=== PATIENT | male | born 1970 | race Caucasian/White ===

== ENCOUNTER 2016-10-15 17:45 | Emergency (ER) | payer BC, OTHER ==
--- NOTE | 2016-10-15 18:17 | EDM.PDOC ---
ED HPI Trauma - General Stated Complaint: INJURED FINGER Time Seen by Provider: 10/15/16 18:01 Source: Reports: Patient History Limitations: Reports: No limitations - History of Present Illness INITIAL COMMENTS - FREE TEXT/NARRATIVE: Patient presents a couple hours after sticking his left ring finger in the bottom of a leaf blower and getting pinched/crushed between the plastic fan blade and fan housing. It was just the distal finger and not involving the DIP joint. No other injuries. Allergies/ADRs: Allergies promethazine [From Phenergan] Allergy (Verified 10/15/16 18:24) Other Home Medications: Ambulatory Orders . [No Known Home Meds] 10/15/16 [Confirmed 10/15/16] Review of Systems - Review of Systems Review Of Systems: ROS reveals no pertinent complaints other than HPI. Trauma Exam - Physical Exam Exam: See Below Exam Limited By: No limitations General Appearance: Reports: alert, WD/WN, no apparent distress Head: Reports: atraumatic, normocephalic Eyes: bilateral eye: EOMI, normal inspection, PERRL Ears: Reports: normal external exam, hearing grossly normal Nose: Reports: normal inspection, no blood Throat/Mouth: Reports: Normal inspection, Normal lips, No airway compromise Neck: Reports: full range of motion Respiratory Exam: Reports: no respiratory distress Extremities: Reports: normal range of motion, other (Left ring finger is swollen distal to the DIP joint with a hematoma visible under the proximal nail. No deformity or lacerations. ROM of DIP, PIP, MCP joints is normal.) Neurologic: Reports: no motor/sensory deficits, alert, normal mood/affect, oriented x 3 Skin: Reports: Normal color, Warm/dry Course - Re-Assessments/Exams Free Text/Narrative Re-Assessment/Exam: 10/15/16 18:15 Patient is stable. I burned a hole in the mid-proximal nail of left ring finger with electro-cautery to release pressure. This provided immediate improvement in finger pain for the patient. Discussed expectations and treatment plan with patient and he was discharged in stable condition. Departure - Departure Time of Disposition: 18:12 Disposition: Home, Self-Care 01 Condition: good Clinical Impression: Subungual hematoma of finger of left hand Qualifiers: Encounter type: initial encounter Qualified Code(s): S60.10XA - Contusion of unspecified finger with damage to nail, initial encounter Traumatic hematoma of finger Qualifiers: Encounter type: initial encounter Qualified Code(s): S60.00XA - Contusion of unspecified finger without damage to nail, initial encounter Additional Instructions: 1. Keep cold pack on finger as needed for pain control. 2. Take Ibuprofen 200-600 mg three times a day as needed. 3. If pressure builds up under the nail again, try soaking and clearing the hole with a sterile needle. 4. Follow up with your PCP if worsening or persisting.
[2016-10-15 18:24] VITALS: BP 127/78
== END 2016-10-15 18:30 | disposition home or self-care (01) ==
LOC: KA.ED 17:45
DX: S60.142A Contusion of left ring finger with damage to nail, initial encounter (principal); Z88.8 Allergy status to other drugs, medicaments and biological substances; W23.0XXA Caught, crushed, jammed, or pinched between moving objects, initial encounter
CPT/HCPCS: 11740; 99283

== ENCOUNTER 2019-05-15 21:09 | Emergency (ER) | payer BC ==
[2019-05-15] MEDS ORDERED: Sodium Chloride 0.9% 10 ML Syringe FLUSH PRN (21:57)
[2019-05-15 22:01] VITALS: BP 136/94; PULSE 65
--- NOTE | 2019-05-15 22:01 | EDM.PDOC ---
ED HPI GENERAL MEDICAL PROBLEM - General Chief Complaint: General Stated Complaint: DIZZINESS Time Seen by Provider: 05/15/19 21:30 Source of Information: Reports: Patient History Limitations: Reports: No Limitations - History of Present Illness INITIAL COMMENTS - FREE TEXT/NARRATIVE: 48 YO WM presents to ER complaining of vertigo which began last night after waking from sleep. Pt reports he woke up and sat up and the room began to spin. Pt states it only lasted for 10 seconds and resolved. Pt reports 2 additional episodes throughout the night and states he didn't sleep well. Pt went to work and states no symptoms all day, but after going home tonight and laying down, as soon as he sat up he experienced vertigo with nausea prompting ER evaluation. Pt with PMH of hearing loss, tinnitus and reconstructive myringotomy at age 40. Pt reports recent illness with associated stuffy nose and sore throat. Pt denies headache, vomiting, fever/chills or sinus pain. Pt denies chest pain, no shortness of breath, no fever/chills. Pt denies cough. Onset Date: 05/14/19 Location: Reports: Head, Generalized Quality: Reports: Dull Severity: Mild Improves with: Reports: Rest Worsens with: Reports: Movement Associated Symptoms: Denies: Confusion, Chest Pain, Cough, cough w sputum, Diaphoresis, Fever/Chills, Headaches, Loss of Appetite, Malaise, Nausea/Vomiting , Seizure, Shortness of Breath, Syncope, Weakness Headache Pain Score (Numeric/FACES): 5 - Related Data Allergies Allergy/AdvReac Type Severity Reaction Status Date / Time promethazine [From Phenergan] Allergy Other Verified 05/15/19 22:21 Home Meds: Home Meds Azithromycin [Zithromax] 250 mg PO DAILY #6 tab 05/15/19 [Rx] Escitalopram Oxalate 20 mg PO DAILY 05/15/19 [History] Meclizine [Antivert] 25 mg PO Q6H PRN #20 tab 05/15/19 [Rx] Teriparatide [Forteo] 20 mcg INJECT DAILY 05/15/19 [History] Social & Family History - Caffeine Use Caffeine Use: Reports: Coffee ED ROS GENERAL - Review of Systems Review Of Systems: See Below Constitutional: Reports: No Symptoms HEENT: Reports: Throat Pain, Vertigo. Denies: Vision Change Respiratory: Reports: No Symptoms Cardiovascular: Reports: No Symptoms Endocrine: Reports: No Symptoms GI/Abdominal: Reports: No Symptoms, Nausea : Reports: No Symptoms Musculoskeletal: Reports: No Symptoms Skin: Reports: No Symptoms Neurological: Reports: Dizziness, Gait Disturbance. Denies: Headache, Numbness , Paresthesia, Pre-Existing Deficit, Seizure, Syncope, Tingling, Tremors, Trouble Speaking, Difficulty Walking, Weakness, Change in Speech Psychiatric: Reports: No Symptoms Hematologic/Lymphatic: Reports: No Symptoms Immunologic: Reports: No Symptoms ED EXAM, GENERAL - Physical Exam Exam: See Below Exam Limited By: No Limitations General Appearance: Alert, WD/WN, No Apparent Distress Eye Exam: Bilateral Eye: EOMI, PERRL Ears: Normal External Exam, Normal Canal, Hearing Grossly Normal, Normal TMs Nose: Normal Inspection, Normal Mucosa, No Blood Throat/Mouth: Normal Inspection, Normal Lips, Normal Teeth, Normal Gums, Normal Oropharynx, Normal Voice, No Airway Compromise Head: Atraumatic, Normocephalic. No: Sinus Tenderness Neck: Normal Inspection, Supple, Non-Tender, Full Range of Motion Respiratory/Chest: No Respiratory Distress, Lungs Clear, Normal Breath Sounds, No Accessory Muscle Use, Chest Non-Tender Cardiovascular: Normal Peripheral Pulses, Regular Rate, Rhythm, No Edema, No Gallop, No JVD, No Murmur, No Rub GI/Abdominal: Normal Bowel Sounds, Soft, Non-Tender, No Organomegaly, No Distention, No Abnormal Bruit, No Mass Back Exam: Normal Inspection, Full Range of Motion, NT Extremities: Normal Inspection, Normal Range of Motion, Non-Tender, Normal Capillary Refill, No Pedal Edema Neurological: Alert, Oriented, CN II-XII Intact, Normal Cognition, Normal Gait, Normal Reflexes, No Motor/Sensory Deficits Psychiatric: Normal Affect, Normal Mood Skin Exam: Warm, Dry, Intact, Normal Color, No Rash Lymphatic: No Adenopathy EKG INTERPRETATION EKG Date: 05/15/19 Time: 21:42 Rhythm: NSR Rate (Beats/Min): 66 [place]: Normal P-Wave: Present QRS: Normal ST-T: Normal QT: Normal Comparison: NA - No Prior EKG Course - Vital Signs Last Recorded V/S: Last Vital Signs Temp 36.3 C 05/15/19 21:16 Pulse 65 05/15/19 21:16 Resp 16 05/15/19 21:16 BP 136/94 H 05/15/19 21:16 Pulse Ox 96 05/15/19 21:16 - Orders/Labs/Meds Orders: Active Orders 24 hr Category Date Time Status Cardiac Monitoring [RC] . DIRECTED Care 05/15/19 21:57 Active EKG Documentation Completion [RC] ASDIRECTED Care 05/15/19 21:52 Active Orthostatic Vital Signs [RC] ASDIRECTED Care 05/15/19 21:57 Active Peripheral IV Care [RC] . DIRECTED Care 05/15/19 21:50 Active Peripheral IV Care [RC] . DIRECTED Care 05/15/19 21:58 Active Chest 2V [CR] Stat Exams 05/15/19 21:51 Ordered Head wo Cont [CT] Stat Exams 05/15/19 21:50 Ordered Sodium Chloride 0.9% [Normal Saline] 1,000 ml Med 05/15/19 21:58 Active IV .BOLUS Sodium Chloride 0.9% [Saline Flush] Med 05/15/19 21:50 Active 10 ml FLUSH Q8HR PRN Sodium Chloride 0.9% [Saline Flush] Med 05/15/19 21:57 Active 10 ml FLUSH Q8HR PRN Peripheral IV Insertion Adult [OM.PC] Routine Oth 05/15/19 21:50 Ordered Peripheral IV Insertion Adult [OM.PC] Routine Oth 05/15/19 21:57 Ordered EKG 12 Lead [EK] Routine Ther 05/15/19 21:52 Ordered Medication Orders Sodium Chloride (Normal Saline) 1,000 mls @ 999 mls/hr IV .BOLUS ONE Stop: 05/15/19 22:58 Last Admin: 05/15/19 22:35 Dose: 999 mls/hr Sodium Chloride (Saline Flush) 10 ml FLUSH Q8HR PRN PRN Reason: keep vein open Sodium Chloride (Saline Flush) 10 ml FLUSH Q8HR PRN PRN Reason: keep vein open Labs: Laboratory Tests 05/15/19 05/15/19 05/15/19 Range/Units 21:52 22:05 22:05 WBC 8.62 (5.00-10.00) 10^3/uL RBC 5.18 (4.50-6.00) 10^6/uL Hgb 16.2 (13.0-17.0) g/dL Hct 46.5 (40.0-52.0) % MCV 89.8 (82.0-92.0) fL MCH 31.3 H (27.0-31.0) pg MCHC 34.8 (32.0-36.0) g/dL RDW 12.5 (11.5-14.5) % Plt Count 277 (150-400) 10^3/uL MPV 9.3 (7.4-10.4) fL Immature Gran % (Auto) 0.2 (0.0-5.0) % Neut % (Auto) 58.8 (50.0-70.0) % Lymph % (Auto) 23.8 (20.0-40.0) % [place] % (Auto) 9.6 H (2.0-8.0) % Eos % (Auto) 7.0 H (1.0-3.0) % Baso % (Auto) 0.6 (0.0-1.0) % Immature Gran # (Auto) 0.02 (0.00-0.50) 10^3/uL Neut # (Auto) 5.07 (2.50-7.00) 10^3/uL Lymph # (Auto) 2.05 (1.00-4.00) 10^3/uL Dale # (Auto) 0.83 H (0.10-0.80) 10^3/uL Eos # (Auto) 0.60 H (0.10-0.30) 10^3/uL Baso # (Auto) 0.05 (0.00-0.10) 10^3/uL Sodium 138 (136-145) mmol/L Potassium 4.6 (3.3-5.3) mmol/L Chloride 100 (98-115) mmol/L Carbon Dioxide 28.8 (21.0-32.0) mmol/L Anion Gap 13.8 (5-15) mmol/L BUN 20 (6-25) mg/dL Creatinine 1.05 (0.51-1.17) mg/dL Est Cr Clr Drug Dosing 110.79 mL/min Estimated GFR (MDRD) > 60 mL/min Glucose 108 H (75 - 99) mg/dL Calcium 9.3 (8.7-10.3) mg/dL Specimen Type . Urine Color Yellow (YELLOW) Urine Appearance Clear (CLEAR) Urine pH 7.0 (5.0-9.0) Ur Specific [place] 1.020 (1.005-1.030) Urine Protein Negative (NEGATIVE) mg/dL Urine Glucose (UA) Negative (NEGATIVE) mg/dL Urine Ketones Negative (NEGATIVE) mg/dL Urine Occult Blood Negative (NEGATIVE) Urine Nitrite Negative (NEGATIVE) Urine Bilirubin Negative (NEGATIVE) Urine Urobilinogen 0.2 (0.2-1.0) E.U./dL Ur Leukocyte Esterase Negative (NEGATIVE) Urine RBC 0-5 (0-5) /HPF Urine WBC Not seen (0-5) /HPF Ur Epithelial Cells Rare /LPF Urine Bacteria Not seen (NONE TO FEW) /HPF Urine Mucus Moderate H (NEGATIVE) /LPF Meds: Medications Generic Name Dose Route Start Last Admin Trade Name Kareemq PRN Reason Stop Dose Admin Sodium Chloride 1,000 mls @ 999 mls/hr 05/15/19 21:58 05/15/19 22:35 Normal Saline IV 05/15/19 22:58 999 mls/hr .BOLUS ONE Administration Sodium Chloride 10 ml 05/15/19 21:50 Saline Flush FLUSH Q8HR PRN keep vein open Sodium Chloride 10 ml 05/15/19 21:57 Saline Flush FLUSH Q8HR PRN keep vein open Discontinued Medications Generic Name Dose Route Start Last Admin Trade Name Jeremiah PRN Reason Stop Dose Admin Diphenhydramine HCl 50 mg 05/15/19 22:27 Benadryl IVPUSH 05/15/19 22:28 ONETIME ONE Meclizine HCl 25 mg 05/15/19 22:27 05/15/19 22:32 Antivert PO 05/15/19 22:28 25 mg ONETIME ONE Administration - Radiology Interpretation Free Text/Narrative:: CT head- NAD CXR- RLL haziness- possibility of minimal infiltrates Departure - Departure Time of Disposition: 22:56 Disposition: Home, Self-Care 01 Condition: Good Clinical Impression: Vertigo Acute labyrinthitis Qualifiers: Laterality: unspecified laterality Qualified Code(s): H83.09 - Labyrinthitis, unspecified ear Pneumonia Qualifiers: Laterality: right Lung location: lower lobe of lung - Discharge Information Prescriptions: Azithromycin [Zithromax] 250 mg PO DAILY #6 tab Meclizine [Antivert] 25 mg PO Q6H PRN #20 tab PRN Reason: Dizziness Instructions: Labyrinthitis, Vertigo, [id number] Referrals: Susanne Cruz MD [Primary Care Provider] - Forms: ED Department Discharge Additional Instructions: 1. discharge home 2. antivert 25mg every 6 hours 3. afrin NS 2 sprays each nostril twice per day x 3 days 4. zyrtec 10mg everyday 5. Z-pack for possible early pneumonia 6. follow up with PCP 05/17/2019 for recheck 7. return to ER for worsening symptoms - My Orders Last 24 Hours: My Active Orders 05/15/19 21:50 Peripheral IV Care [RC] . DIRECTED Head wo Cont [CT] Stat Sodium Chloride 0.9% [Saline Flush] 10 ml FLUSH Q8HR PRN Peripheral IV Insertion Adult [OM.PC] Routine 05/15/19 21:51 Chest 2V [CR] Stat 05/15/19 21:52 EKG Documentation Completion [RC] ASDIRECTED EKG 12 Lead [EK] Routine 05/15/19 21:57 Cardiac Monitoring [RC] . DIRECTED Orthostatic Vital Signs [RC] ASDIRECTED Sodium Chloride 0.9% [Saline Flush] 10 ml FLUSH Q8HR PRN Peripheral IV Insertion Adult [OM.PC] Routine 05/15/19 21:58 Peripheral IV Care [RC] . DIRECTED Sodium Chloride 0.9% [Normal Saline] 1,000 ml IV .BOLUS - Assessment/Plan Last 24 Hours: My Active Orders 05/15/19 21:50 Peripheral IV Care [RC] . DIRECTED Head wo Cont [CT] Stat Sodium Chloride 0.9% [Saline Flush] 10 ml FLUSH Q8HR PRN Peripheral IV Insertion Adult [OM.PC] Routine 05/15/19 21:51 Chest 2V [CR] Stat 05/15/19 21:52 EKG Documentation Completion [RC] ASDIRECTED EKG 12 Lead [EK] Routine 05/15/19 21:57 Cardiac Monitoring [RC] . DIRECTED Orthostatic Vital Signs [RC] ASDIRECTED Sodium Chloride 0.9% [Saline Flush] 10 ml FLUSH Q8HR PRN Peripheral IV Insertion Adult [OM.PC] Routine 05/15/19 21:58 Peripheral IV Care [RC] . DIRECTED Sodium Chloride 0.9% [Normal Saline] 1,000 ml IV .BOLUS Assessment:: 1. Vertigo- likely Labyrinthitis 2. RLL haziness- possible early pneumonic infiltrates Plan: 1. discharge home 2. antivert 25mg every 6 hours 3. afrin NS 2 sprays each nostril twice per day x 3 days 4. zyrtec 10mg everyday 5. Z-pack for possible early pneumonia 6. follow up with PCP 05/17/2019 for recheck 7. return to ER for worsening symptoms
[2019-05-15] MEDS: Meclizine 25 MG Tab PO ONE (22:32)
[2019-05-15] MEDS: Sodium Chloride 0.9% 1,000 ML IV ONE (22:35)
[2019-05-15] MEDS: diphenhydrAMINE 50 MG/ML SDV IVPUSH ONE (22:38)
[2019-05-15 22:42] LABS: ANION GAP 13.8 mmol/L (5-15); CHLORIDE,CL 100 mmol/L (98-115); SODIUM,NA 138 mmol/L (136-145)
[2019-05-15] MEDS: Sodium Chloride 0.9% 10 ML Syringe FLUSH PRN (22:49)
--- NOTE | 2019-05-16 07:47 | CT ---
[id number] CT/CT Head WO IV EXAM: CT Head WO IV CLINICAL DATA: DIZZINESS COMPARISON STUDY: None FINDINGS: No intracranial hemorrhage, extra-axial fluid collection, mass, or acute ischemia. Soft tissues are unremarkable. Paranasal sinuses and mastoid air cells are clear. IMPRESSION: No acute intracranial findings. Tyler Durham DO 05/16/19 0746 Thank you for allowing us to participate in the care of your patient.
--- NOTE | 2019-05-16 07:48 | CR ---
[id number] RAD/RAD Chest PA And Lateral EXAM: RAD Chest PA And Lateral INDICATION: DIZZINESS COMPARISON: None. DISCUSSION: Cardiomediastinal silhouette is normal in size and contour. Right basilar pulmonary infiltrate best seen on the lateral view. No pneumothorax or pleural effusion. Pulmonary hyperinflation. IMPRESSION: Right basilar pulmonary infiltrates. Follow-up imaging after appropriate therapy in 4-6 weeks is recommended to ensure resolution. Tyler Durham DO 05/16/19 0747 Thank you for allowing us to participate in the care of your patient.
== END 2019-05-15 23:46 | disposition home or self-care (01) ==
LOC: KA.ED 21:09
DX: H83.09 Labyrinthitis, unspecified ear (principal); J18.1 Lobar pneumonia, unspecified organism; Z79.899 Other long term (current) drug therapy; Z88.8 Allergy status to other drugs, medicaments and biological substances
CPT/HCPCS: 70450; 71046; 80048; 81001; 85025; 93005; 96361; 96374; 99284-25; A9270-GY; J1200; J7030

== ENCOUNTER 2020-09-06 12:23 | Emergency (ER) | payer BC ==
[2020-09-06 12:42] VITALS: BP 137/80; PULSE 110
[2020-09-06] MEDS ORDERED: Ketorolac 30 MG/ML SDV IVPUSH ONE (13:19)
[2020-09-06] MEDS ORDERED: Ondansetron 4 MG/2 ML SDV IVPUSH ONE (13:19)
--- NOTE | 2020-09-06 13:25 | EDM.PDOC ---
ED HPI GENERAL MEDICAL PROBLEM - General Chief Complaint: General Stated Complaint: KIDNEY STONE?? Time Seen by Provider: 09/06/20 13:07 Source of Information: Reports: Patient, Significant Other History Limitations: Reports: No Limitations - History of Present Illness INITIAL COMMENTS - FREE TEXT/NARRATIVE: Patient presents with right flank pain that started 24 hours ago. 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 But he says it definitely doesn't feel like musculoskeletal pain, but deeper. It has worsened today and now is painful to lift or move his right leg. No pain in the leg but just deep in right flank. No dysuria but his urine looked darker than usual today. Denies pain in midline back. No numbness. No vomiting but has some nausea this morning. No history of kidney infections or stones. 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, NSAIDS Right Flank Pain Score (Numeric/FACES): 8 - Related Data Allergies Allergy/AdvReac Type Severity Reaction Status Date / Time promethazine [From Phenergan] Allergy Other Verified 05/15/19 22:21 Home Meds: Home Meds Azithromycin [Zithromax] 250 mg PO DAILY #6 tab 05/15/19 [Rx] Escitalopram Oxalate 20 mg PO DAILY 05/15/19 [History] Meclizine [Antivert] 25 mg PO Q6H PRN #20 tab 05/15/19 [Rx] Teriparatide [Forteo] 20 mcg INJECT DAILY 05/15/19 [History] Past Medical History HEENT History: Reports: Impaired Vision Cardiovascular History: Reports: Hypertension Respiratory History: Reports: Asthma Gastrointestinal History: Reports: None Genitourinary History: Reports: None Musculoskeletal History: Reports: Osteoporosis Other Musculoskeletal History: being treated for osteoporosis of the spine in [facility] since 06/11/18 Neurological History: Reports: None Psychiatric History: Reports: Anxiety, Depression Endocrine/Metabolic History: Reports: Osteoporosis Hematologic History: Reports: None Oncologic (Cancer) History: Reports: Other (See Below) Other Oncologic History: melanoma on arm Dermatologic History: Reports: Eczema - Infectious Disease History Infectious Disease History: Reports: Chicken Pox, Novel Coronavirus - Past Surgical History HEENT Surgical History: Reports: Other (See Below) Other HEENT Surgeries/Procedures: nasal reconstruction and tubes for ears done around 2008 Cardiovascular Surgical History: Reports: Other (See Below) Other Cardiovascular Surgeries/Procedures: h/o right heart cath Respiratory Surgical History: Reports: None GI Surgical History: Reports: None Male Surgical History: Reports: Circumcision Endocrine Surgical History: Reports: None Neurological Surgical History: Reports: None Musculoskeletal Surgical History: Reports: Other (See Below) Other Musculoskeletal Surgeries/Procedures:: right foot surgery from blood poisioning Oncologic Surgical History: Reports: None Dermatological Surgical History: Reports: None Social & Family History - Family History Family Medical History: No Pertinent Family History - Tobacco Use Tobacco Use Status *Q: Former Tobacco User Used Tobacco, but Quit: Yes Month/Year Tobacco Last Used: quit 20 yrs ago - Caffeine Use Caffeine Use: Reports: Coffee, Soda, Tea - Recreational Drug Use Recreational Drug Use: No ED ROS GENERAL - Review of Systems Review Of Systems: See Below Constitutional: Denies: Fever, Chills, Malaise, Weakness HEENT: Denies: Throat Pain, Vision Change Respiratory: Denies: Shortness of Breath, Cough Cardiovascular: Denies: Chest Pain, Lightheadedness, Syncope GI/Abdominal: Reports: Abdominal Pain (RUQ but more toward posterior flank), Diarrhea (this morning, but usually just regular stools). Denies: Black Stool, Bloody Stool, Constipation, Vomiting : Reports: Flank Pain. Denies: Dysuria, Hematuria, Incontinence Musculoskeletal: Denies: Neck Pain, Shoulder Pain, Arm Pain, Back Pain, Hand Pain Skin: Denies: Cyanosis, Jaundice, Mottled, Pallor, Diaphoresis Neurological: Denies: Confusion, Dizziness, Headache, Seizure, Syncope, Trouble Speaking, Difficulty Walking Psychiatric: Reports: Anxiety (takes medication for anxiety and depression). Denies: Agitation, Confusion ED EXAM, GENERAL - Physical Exam Exam: See Below Exam Limited By: No Limitations General Appearance: Alert, WD/WN, No Apparent Distress Eye Exam: Bilateral Eye: EOMI, Normal Inspection, PERRL Ears: Normal External Exam, Hearing Grossly Normal Nose: Normal Inspection, No Blood Throat/Mouth: Normal Inspection, Normal Lips, Normal Voice, No Airway Compromise Head: Atraumatic, Normocephalic Neck: Normal Inspection, Full Range of Motion Respiratory/Chest: No Respiratory Distress, Lungs Clear, Normal Breath Sounds, No Accessory Muscle Use Cardiovascular: Regular Rate, Rhythm, No Murmur GI/Abdominal: Soft, No Organomegaly, No Distention, Tender (right upper quadrant). No: Guarding, Rigid Back Exam: Full Range of Motion, CVA Tenderness (R). No: CVA Tenderness (L), Muscle Spasm, Paraspinal Tenderness, Vertebral Tenderness Extremities: Normal Inspection, Limited Range of Motion (right leg due to flank pain) Neurological: Alert, Oriented, Normal Cognition, No Motor/Sensory Deficits Psychiatric: Normal Affect, Normal Mood Skin Exam: Warm, Dry, Intact, Normal Color, No Rash Course - Vital Signs Last Recorded V/S: Last Vital Signs Temp 97.8 F 09/06/20 12:35 Pulse 110 H 09/06/20 12:35 Resp 18 09/06/20 12:35 BP 137/80 09/06/20 12:35 Pulse Ox 98 09/06/20 12:35 - Orders/Labs/Meds Orders: Active Orders 24 hr Category Date Time Status Peripheral IV Care [RC] . DIRECTED Care 09/06/20 15:05 Active Sodium Chloride 0.9% [Normal Saline] 50 ml Med 09/06/20 14:45 Ordered IV ASDIRECTED Sodium Chloride 0.9% [Saline Flush] Med 09/06/20 15:05 Active 10 ml FLUSH Q8HR PRN Peripheral IV Insertion Adult [OM.PC] Routine Oth 09/06/20 15:05 Ordered Medication Orders Sodium Chloride (Normal Saline) 50 mls @ 200 mls/hr IV ASDIRECTED [facility] Last Admin: 09/06/20 14:25 Dose: 200 mls/hr Documented by: ANGELA Sodium Chloride (Saline Flush) 10 ml FLUSH Q8HR PRN PRN Reason: keep vein open Labs: Laboratory Tests 09/06/20 09/06/20 09/06/20 Range/Units 13:00 13:00 13:25 WBC 10.20 H (5.00-10.00) 10^3/uL RBC 5.16 (4.50-6.00) 10^6/uL Hgb 15.8 (13.0-17.0) g/dL Hct 46.6 (40.0-52.0) % MCV 90.3 (82.0-92.0) fL MCH 30.6 (27.0-31.0) pg MCHC 33.9 (32.0-36.0) g/dL RDW 12.9 (11.5-14.5) % Plt Count 241 (150-400) 10^3/uL MPV 9.2 (7.4-10.4) fL Immature Gran % (Auto) 0.4 (0.0-5.0) % Neut % (Auto) 80.6 H (50.0-70.0) % Lymph % (Auto) 7.7 L (20.0-40.0) % [place] % (Auto) 6.2 (2.0-8.0) % Eos % (Auto) 4.6 H (1.0-3.0) % Baso % (Auto) 0.5 (0.0-1.0) % Neut # (Auto) 8.22 H (2.50-7.00) 10^3/uL Lymph # (Auto) 0.79 L (1.00-4.00) 10^3/uL [place] # (Auto) 0.63 (0.10-0.80) 10^3/uL Eos # (Auto) 0.47 H (0.10-0.30) 10^3/uL Baso # (Auto) 0.05 (0.00-0.10) 10^3/uL Immature Gran # (Auto) 0.04 (0.00-0.50) 10^3/uL Sodium 137 (136-145) mmol/L Potassium 4.3 (3.5-5.1) mmol/L Chloride 102 (98-107) mmol/L Carbon Dioxide 27.6 (21.0-32.0) mmol/L Anion Gap 11.7 (5-15) mmol/L BUN 26 H (7-18) mg/dL Creatinine 0.95 (0.51-1.17) mg/dL Est Cr Clr Drug Dosing 119.84 mL/min Estimated GFR (MDRD) > 60 mL/min Glucose 134 (70-140) mg/dL Calcium 8.5 L (8.7-10.3) mg/dL Specimen Type Urinvoid Urine Color Yellow (YELLOW) Urine Appearance Clear (CLEAR) Urine pH 7.0 (5.0-9.0) Ur Specific [place] 1.015 (1.005-1.030) Urine Protein 30 H (NEGATIVE) mg/dL Urine Glucose (UA) Negative (NEGATIVE) mg/dL Urine Ketones Negative (NEGATIVE) mg/dL Urine Occult Blood Negative (NEGATIVE) Urine Nitrite Negative (NEGATIVE) Urine Bilirubin Negative (NEGATIVE) Urine Urobilinogen 0.2 (0.2-1.0) E.U./dL Ur Leukocyte Esterase Negative (NEGATIVE) Urine RBC 0-5 (0-5) /HPF Urine WBC 0-5 (0-5) /HPF Urine Bacteria Occasional (NONE TO FEW) /HPF Urine Mucus Few H (NEGATIVE) /LPF Urinalysis Comment See note Meds: Medications Generic Name Dose Route Start Last Admin Trade Name Freq PRN Reason Stop Dose Admin Sodium Chloride 50 mls @ 200 mls/hr 09/06/20 14:45 09/06/20 14:25 Normal Saline IV 200 mls/hr ASDIRECTED MONICA Administration Sodium Chloride 10 ml 09/06/20 15:05 Saline Flush FLUSH Q8HR PRN keep vein open Discontinued Medications Generic Name Dose Route Start Last Admin Trade Name Freq PRN Reason Stop Dose Admin Hydromorphone HCl 1 mg 09/06/20 14:43 09/06/20 14:50 Dilaudid IVPUSH 09/06/20 14:44 1 mg ONETIME ONE Administration Sodium Chloride 1,000 mls @ 999 mls/hr 09/06/20 13:41 09/06/20 13:44 Normal Saline IV 09/06/20 14:41 999 mls/hr .BOLUS ONE Administration Iopamidol 100 ml 09/06/20 14:42 09/06/20 14:25 Isovue-370 (76%) IV 09/06/20 14:43 100 ml ONETIME ONE Administration Ketorolac Tromethamine 30 mg 09/06/20 13:19 09/06/20 13:42 Toradol IVPUSH 09/06/20 13:20 30 mg ONETIME ONE Administration Ondansetron HCl 4 mg 09/06/20 13:19 09/06/20 13:40 Zofran IVPUSH 09/06/20 13:20 4 mg ONETIME ONE Administration - Re-Assessments/Exams Free Text/Narrative Re-Assessment/Exam: 09/06/20 16:21 WBC 10.2, ANC 8.22. CT shows inflammation and edema of the entire colon and rectum, with the most prominent along the ascending colon to hepatic flexure--which is the area of current pain. I pushed films to [place] PACS and discussed case with Dr. Pa, hospitalist, who accepted for transfer. He didn't recommend any additional treatment before transfer. I discussed findings and treatment plan with patient and his who agree with plan. Pain is tolerable now with Dilaudid and Toradol on board, but still quite uncomfortable if he tries to lift or move his right leg. Departure - Departure Time of Disposition: 16:27 Disposition: DC/Tfer to [facility] 02 Condition: Good Clinical Impression: Acute colitis, Proctocolitis - Discharge Information Referrals: Susanne Cruz MD [Primary Care Provider] - Forms: ED Department Discharge, Interfacility Transfer [facility] Sepsis Event Note (ED) - Evaluation Sepsis Screening Result: No Definite Risk - Focused Exam Vital Signs: Vital Signs Temp Pulse Resp BP Pulse Ox 09/06/20 12:35 97.8 F 110 H 18 137/80 98 - My Orders Last 24 Hours: My Active Orders 09/06/20 14:45 Sodium Chloride 0.9% [Normal Saline] 50 ml IV ASDIRECTED 09/06/20 15:05 Peripheral IV Care [RC] . DIRECTED Sodium Chloride 0.9% [Saline Flush] 10 ml FLUSH Q8HR PRN Peripheral IV Insertion Adult [OM.PC] Routine - Assessment/Plan Last 24 Hours: My Active Orders 09/06/20 14:45 Sodium Chloride 0.9% [Normal Saline] 50 ml IV ASDIRECTED 09/06/20 15:05 Peripheral IV Care [RC] . DIRECTED Sodium Chloride 0.9% [Saline Flush] 10 ml FLUSH Q8HR PRN Peripheral IV Insertion Adult [OM.PC] Routine
[2020-09-06 13:29] LABS: ANION GAP 11.7 mmol/L (5-15); CHLORIDE,CL 102 mmol/L (98-107); SODIUM,NA 137 mmol/L (136-145)
[2020-09-06] MEDS ORDERED: Sodium Chloride 0.9% 1,000 ML IV ONE (13:41)
[2020-09-06] MEDS ORDERED: Iopamidol 755 Mg/ML 100 ML Bottle IV ONE (14:42)
[2020-09-06] MEDS ORDERED: HYDROmorphone 1 MG/ML Syringe IVPUSH ONE (14:43)
[2020-09-06] MEDS ORDERED: Sodium Chloride 0.9% 50 ML IV SCH (14:45)
[2020-09-06] MEDS ORDERED: Sodium Chloride 0.9% 10 ML Syringe FLUSH PRN (15:05)
--- NOTE | 2020-09-06 15:13 | CT ---
[id number] CT/CT Abdomen Pelvis W IV EXAM: CT Abdomen Pelvis W IV CLINICAL DATA: RIGHT FLANK PAIN, RIGHT UPPER QUADRANT PAIN, WORSENING COMPARISON STUDY: None. FINDINGS: Lung bases are clear. Simple appearing splenic cyst. Liver, gallbladder, pancreas, adrenal glands, and kidneys are unremarkable. Wall thickening and edema throughout majority of the colon and rectum. Findings are most prominent in the ascending segment extending to the hepatic flexure. Findings suggest underlying mild changes of colitis. No evidence of bowel perforation. No small bowel obstruction. Small sliding-type hiatus hernia. Appendix is normal. No lymphadenopathy, free fluid, or pneumoperitoneum. Spondylosis. No acute fracture or compression deformity. IMPRESSION: Mild changes of proctocolitis. Findings are most consistent with either infectious or inflammatory etiology. Ramone Magallanes MD 09/06/20 [id number] Thank you for allowing us to participate in the care of your patient.
--- OUTSIDE RECORDS SUMMARY | 2020-09-16 11:13 | XMSREPORT | Referral Summary ---
:1970 Author Organization [facility] s Address [address] [place] [address] Care Team Providers Name Role Phone Pcp, Unavailable Unavailable Olga Suarez SAFETY TRAINER-[facility] Primary Care Provider [phone] Kaden Cruz MD Attributed Provider Reason for Referral Transitions of Care (Routine) Status Reason Specialty Diagnoses / Referred By Referred To Procedures Contact Contact New Request Service Not Diagnoses Pneumonia due to infectious organism, unspecified laterality, unspecified part of lung [facility], [facility] Available at [facility] RESOURCE [address] [place], [place] [address] [address] [place], [place] Phone: [phone] Phone: Encounter Details Date Type Department Care Team Description 08/25/2020 Orders Only [facility], Pneumon ia due to CLINIC [facility] infectious organism, [address] [employer]-[facility] [place], [place] [address] unspecified part of [phone] [place] [address] lung (Primary Dx) [phone] Allergies Active Allergy Reactions Severity Noted Date Comments Dust Mite Extract Itching High 08/01/2012 Itching ey es and some SOB. Promethazine Hcl Unknown/Not Verified 04/02/2012 Lisa ble to urinate documented as of this encounter (statuses as of 08/25/2020) Medications Medication Sig Dispensed Refills Start Date End Date Status teriparatide, Inject 20 mcg 0 07/12/2018 A ctive recombinant, subcutaneously 1 (FORTEO) 600 time per day mcg/2.4 mL injection fluocinonide APPLY TWICE DAILY 120 g 1 02/07/2019 Active (LIDEX) 0.05 % NEEDED, LIMIT TO creamIndications: LESS THAN THREE Eczema, unspecified WEEKS AT A TIME. type AVOID FACE AND SKIN FOLD AREAS. calcium Take 3 tablets by 0 Ac tive carbonate-vitamin D mouth every night at (CALTRATE 600 + D) bedtime 600 mg-400 unit tablet vitamin C (ASCORBIC Take 1,000 mg by 0 Active ACID) 1000 MG mouth 1 time per day tablet vitamin D3, Take 2,000 Units by 0 Active cholecalciferol, mouth 1 time per day 2000 unit tablet sildenafil (VIAGRA) TAKE ONE TABLET BY 30 tablet 4 09/06/2019 Active 50 MG MOUTH ONE HOUR PRIOR tabletIndications: TO SEXUAL ACTIVITY Erectile *MAX OF 1 TABLET A dysfunction, DAY unspecified erectile dysfunction type fluorouracil Apply to sun exposed 40 g 2 09/26/2019 Active (EFUDEX) 5 % areas 2 times a day creamIndications: for 2 weeks, then [place] (actinic daily for 1 week, keratosis) cut back if develop open oozing spots, or too red for comfort. 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 Generalized anxiety disorder Overview: Previously tried: zoloft (side effects), lexapro (side effects), cymbalta documented as of this encounter (statuses as of 08/25/2020) Resolved Problems Problem Noted Date Resolved Date Osteopenia 07/27/2017 03/12/2019 Overview: On franny Following with [facility] T5 vertebral fracture 05/30/2017 02/07/2018 Acute bilateral low back pain without sciatica 04/12/2016 02/07/2018 Right hip pain 04/12/2016 06/01/2017 Health examination in population survey 01/15/2014 07/14/2014 Lateral epicondylitis 08/01/2012 06/01/2017 Overview: Right > left Wearing brace as needed Loss of weight 10/03/2011 06/01/2017 documented as of this encounter (statuses as of 08/25/2020) Immunizations Name Administration Dates Next Due HEP B VACCINE 01/03/2000, 09/07/1999, 08/05/1999 HEP B, peds/adol 01/03/2000, 09/07/1999, 08/05/1999 Hep A,adult 12/07/2018, 07/25/2013 TD,adult,unspecified 05/26/2016 TD,not adsorbed 10/22/1997 TDAP 07/09/2007 Td(adult)preservative free 05/26/2016 documented as of this encounter Social History Tobacco Use Types Packs/Day Years Used Date Former Smoker Cigarettes 0.5 5 Smokeless Tobacco: Former User Chew Alcohol Use Drinks/Week oz/Week Comments Yes 1 Glasses of wine 2.8 1 Cans of beer 1 Standard drinks or equivalent Food Insecurity Answer Date Recorded Within the past 12 months, you worried that your food would Never true 06/22/2020 run out before you got money to buy more. Within the past 12 months, the food you bought just didn't N ever true 06/22/2020 last and you didn't have money to get more. Sexually Active Control Partners Comments Yes Female Sex Assigned at Date Recorded Male 08/27/2018 7:23 PM [employer] documented as of this encounter Functional Status Functional Status Response Date of Assessment Do you have difficulty with walking, balance, climbing No 08/02/2017 stairs, or had a fall in the last 3 months? documented as of this encounter Plan of Treatment Date Type Specialty Care Team Description 09/10/2020 Office Visit Internal Medicine Erick Melissa Olga , [employer]ET[employer] TRA[employer]ER[employer] [address] [place] [address] [phone] 10/01/2020 Office Visit Dermatology Niyah Fortune PA [address] [address] [phone] Name Type Priority Associated Diagnoses Order S [facility] CLINIC REFERRAL Referral Routine Pneumonia due to Ordered: 08/25/2020 RADIOLOGY NON ONE CHART infectious organi sm, unspecified laterality, unspecified part of lung documented as of this encounter Goals Goal Patient Goal Associated Recent Patient-Stated? 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
== END 2020-09-06 17:00 ==
LOC: KA.ED 12:23
DX: K51.30 Ulcerative (chronic) rectosigmoiditis without complications (principal); I10 Essential (primary) hypertension; J45.909 Unspecified asthma, uncomplicated; Z87.891 Personal history of nicotine dependence; Z86.16 Personal history of COVID-19; Z88.8 Allergy status to other drugs, medicaments and biological substances; Z79.899 Other long term (current) drug therapy
CPT/HCPCS: 36415; 74177; 80048; 81001; 85025; 96374; 96375; 99284; 99285-25; J1170; J1885; J2405; J7030; Q9967

== ENCOUNTER 2023-07-06 11:28 | Emergency (ER) | payer BC ==
[2023-07-06] MEDS ORDERED: Nitroglycerin 0.4 MG Tab.SL ONE (11:35)
[2023-07-06] MEDS ORDERED: Aspirin 81 MG Tab.Chew PO ONE (11:35)
[2023-07-06] MEDS ORDERED: Aspirin 81 MG Tab.Chew ONE (11:35)
[2023-07-06 11:50] LABS: BASOPHILS ABSOLUTE AUTO 0.05 10^3/uL (0.00-0.10); BASOPHILS PERCENT AUTO 0.8 % (0.0-1.0); EOSINOPHILS ABSOLUTE AUTO 0.36 10^3/uL (0.10-0.30); EOSINOPHILS PERCENT AUTO 5.7 % (1.0-3.0); HEMATOCRIT 48.7 % (40.0-52.0); HEMOGLOBIN 16.4 g/dL (13.0-17.0); IMMATURE GRAN ABSOLUTE AUTO 0.03 10^3/uL (0.00-0.50); IMMATURE GRAN PERCENT AUTO 0.5 % (0.0-5.0); LYMPHOCYTES ABSOLUTE AUTO 1.39 10^3/uL (1.00-4.00); LYMPHOCYTES PERCENT AUTO 22.1 % (20.0-40.0); MEAN CORPUSCULAR HGB CONC 33.7 g/dL (32.0-36.0); MEAN PLATELET VOLUME 9.1 fL (7.4-10.4); MONOCYTES ABSOLUTE AUTO 0.62 10^3/uL (0.10-0.80); MONOCYTES PERCENT AUTO 9.9 % (2.0-8.0); NEUTROPHILS ABSOLUTE AUTO 3.84 10^3/uL (2.50-7.00); PLATELET COUNT,PLT 293 10^3/uL (150-400); RED BLOOD CELL COUNT 5.47 10^6/uL (4.50-6.00); RED CELL DISTRIBUTION WIDTH 12.4 % (11.5-14.5); WHITE BLOOD CELL COUNT,WBC 6.29 10^3/uL (5.00-10.00)
[2023-07-06] MEDS ORDERED: Nitroglycerin 0.4 MG Tab.SL SL PRN (11:59)
[2023-07-06 12:11] LABS: ALBUMIN 4.12 g/dL (3.40-5.00); ANION GAP 14.7 mmol/L (5-15); BILIRUBIN TOTAL 0.4 mg/dL (0.2-1.0); CREATININE 1.08 mg/dL (0.51-1.17); EST CRCL DRUG DOSING (CG) 103.13 mL/min; POTASSIUM,K 4.7 mmol/L (3.5-5.1); PROTEIN TOTAL,TP 7.3 g/dL (6.4-8.2)
[2023-07-06 15:04] VITALS: BP 126/79; PULSE 72
== END 2023-07-06 14:53 | disposition home or self-care (01) ==
LOC: KA.ED 11:28
DX: R07.89 Other chest pain (principal); R06.00 Dyspnea, unspecified; I10 Essential (primary) hypertension; J45.909 Unspecified asthma, uncomplicated; Z86.16 Personal history of COVID-19; Z88.8 Allergy status to other drugs, medicaments and biological substances; Z79.899 Other long term (current) drug therapy
CPT/HCPCS: 36415; 71046; 80053; 84484; 85025; 85379; 99285; A9270; Q3014; 93005; 93010; 99284

== ENCOUNTER 2024-06-30 09:35 | Emergency (ER) | payer BC ==
[2024-06-30 10:02] VITALS: BP 142/95; PULSE 73
[2024-06-30 10:14] LABS: BASOPHILS ABSOLUTE AUTO 0.06 10^3/uL (0.00-0.10); BASOPHILS PERCENT AUTO 0.9 % (0.0-1.0); EOSINOPHILS ABSOLUTE AUTO 0.23 10^3/uL (0.10-0.30); EOSINOPHILS PERCENT AUTO 3.5 % (1.0-3.0); HEMATOCRIT 48.6 % (40.0-52.0); HEMOGLOBIN 16.2 g/dL (13.0-17.0); IMMATURE GRAN ABSOLUTE AUTO 0.06 10^3/uL (0.00-0.50); IMMATURE GRAN PERCENT AUTO 0.9 % (0.0-5.0); LYMPHOCYTES ABSOLUTE AUTO 1.84 10^3/uL (1.00-4.00); LYMPHOCYTES PERCENT AUTO 28.1 % (20.0-40.0); MEAN CORPUSCULAR HEMOGLOBIN 29.9 pg (27.0-31.0); MEAN CORPUSCULAR HGB CONC 33.3 g/dL (32.0-36.0); MEAN CORPUSCULAR VOLUME 89.8 fL (82.0-92.0); MEAN PLATELET VOLUME 8.7 fL (7.4-10.4); MONOCYTES ABSOLUTE AUTO 0.64 10^3/uL (0.10-0.80); MONOCYTES PERCENT AUTO 9.8 % (2.0-8.0); NEUTROPHILS ABSOLUTE AUTO 3.71 10^3/uL (2.50-7.00); NEUTROPHILS PERCENT AUTO 56.8 % (50.0-70.0); PLATELET COUNT,PLT 298 10^3/uL (150-400); RED BLOOD CELL COUNT 5.41 10^6/uL (4.50-6.00); RED CELL DISTRIBUTION WIDTH 12.5 % (11.5-14.5); WHITE BLOOD CELL COUNT,WBC 6.54 10^3/uL (5.00-10.00)
[2024-06-30 10:29] LABS: ALBUMIN 3.87 g/dL (3.40-5.00); ANION GAP 9.8 mmol/L (5-15); BILIRUBIN TOTAL 0.6 mg/dL (0.2-1.0); CALCIUM 8.5 mg/dL (8.7-10.3); CREATININE 1.1 mg/dL (0.51-1.17); EST CRCL DRUG DOSING (CG) 100.13 mL/min; POTASSIUM,K 4.8 mmol/L (3.5-5.1); PROTEIN TOTAL,TP 6.7 g/dL (6.4-8.2)
[2024-06-30] MEDS: Sodium Chloride 0.9% 1,000 ML IV ONE (11:42)
[2024-06-30] MEDS: Ondansetron 4 MG/2 ML SDV IVPUSH ONE (11:43)
[2024-06-30] MEDS: Ketorolac 30 MG/ML SDV IVPUSH ONE (11:46)
[2024-06-30] MEDS: diphenhydrAMINE 50 MG/ML SDV IVPUSH ONE (11:49)
== END 2024-06-30 12:34 | disposition home or self-care (01) ==
LOC: KA.ED 09:35
DX: R51.9 Headache, unspecified (principal); R20.2 Paresthesia of skin; I10 Essential (primary) hypertension; J45.909 Unspecified asthma, uncomplicated; Z86.16 Personal history of COVID-19; Z79.899 Other long term (current) drug therapy; Z79.82 Long term (current) use of aspirin; Z88.8 Allergy status to other drugs, medicaments and biological substances
CPT/HCPCS: 36415; 70450; 72125; 80053; 85025; 96361; 96374; 96375; 99284; J1200; J1885; J2405; J7030